=== PATIENT | male | born 1965 | race Two or more races ===

== ENCOUNTER 2017-03-17 17:40 | Inpatient (IN) | payer OTHER ==
[~2017-03-17] VITALS: Ht 175.3 cm; Wt 88.9 kg
[2017-04-07] MEDS ORDERED: TAMS0.4C PO (08:36)
[2017-04-07] MEDS ORDERED: SYNTHROID50 MCG PO (08:36)
[2017-04-07] MEDS ORDERED: ZANTAC150 M3 PO (08:37)
[2017-04-07] MEDS ORDERED: PREDISONE PO (08:38)
[2017-04-07] MEDS ORDERED: SEPTRA PO (08:38)
[2017-04-07] MEDS ORDERED: PROGRAF1 MG PO (08:39)
[2017-04-07] MEDS ORDERED: MYFORTIC360 MG PO (08:39)
== END 2017-04-15 11:35 | disposition home or self-care (01) | DRG 708 ==
LOC: O/R 04-13 05:00 → SURH 04-13 05:00
PROVIDERS: Urology
PROC: 07TC0ZZ Resection of Pelvis Lymphatic, Open Approach (ICD-10-PCS; 2017-04-13)
PROC: 0TJB8ZZ Inspection of Bladder, Via Natural or Artificial Opening Endoscopic (ICD-10-PCS; 2017-04-13)
PROC: 8E0ZXY6 Isolation (ICD-10-PCS; 2017-04-13)
PROC: 0VT00ZZ Resection of Prostate, Open Approach (ICD-10-PCS; principal; 2017-04-13 07:00)
DX: C61 Malignant neoplasm of prostate (principal)

== ENCOUNTER 2017-04-24 14:34 | Outpatient (CLI) | payer OTHER ==
[~2017-04-24 14:34] MED LIST: MYFORTIC360 MG PO; PREDISONE PO; PROGRAF1 MG PO; SEPTRA PO; SYNTHROID50 MCG PO; TAMS0.4C PO; ZANTAC150 M3 PO
== END 2017-04-24 14:41 | disposition home or self-care (01) ==
LOC: LAB 14:34
DX: N30.00 Acute cystitis without hematuria (principal); R82.79 Other abnormal findings on microbiological examination of urine